=== PATIENT | female | born 1950 | race Caucasian/White ===

== ENCOUNTER 2016-12-07 16:02 | Observation (INO) | payer OTHER ==
[~2016-12-07] VITALS: Ht 157.5 cm; Wt 62.0 kg
[~2016-12-07 16:02] MED LIST: ALBUTEROL0.63 MG/3 NEB; AMBIEN5 MG PO; ANTIVERT25 MG PO; ASPIRIN325 MG PO; ATROVENT HFA12.9 GM INH; ATROVENT2.5 ML NEB; AUGMENTIN 500-1 EACH PO; DULCOLAX5 MG PO; DUONEB 2.5-0.5MG3 ML NEB; HYDROCODON-ACE1 EAC4 PO; HYDROCODON-ACE1 EAC6 PO; LEVAQUIN500 MG PO; MEDROL4 M1 PO; NASA MIST SALI177 ML; NICODERM 14MG PA1 EA TD; NICODERM 21MG PA1 EA TD; NICODERM 7MG PAT1 EA TD; PEPCID20 MG PO; PRAVACHOL40 MG PO; PREDNISONE5 MG PO; PROCARDIA XL90 MG PO; PROVENTIL INHAL17 GM INH; SPIRIVA18 MCG INH; SYMBICORT 16010.2 GM INH; VALIUM5 MG PO; ZANTAC300 MG PO
[2016-12-07 18:22] LABS: HEMATOCRIT 38.2 % (34-45); HEMOGLOBIN 12.5 g/dL (11.2-15.7); MEAN CORPUSCULAR HEMOGLOBIN 29.6 pg (27.0-33.0); MEAN CORPUSCULAR HGB CONC 32.7 g/dL (32.0-36.0); MEAN CORPUSCULAR VOLUME 90.3 fL (79-95); RED BLOOD COUNT 4.23 x10_6/uL (3.9-5.2); RED CELL DISTRIBUTION WIDTH 12.6 % (11.7-14.4); WHITE BLOOD COUNT 7.7 x10_3/uL (4.0-10.0)
[2016-12-07 18:32] LABS: BLOOD UREA NITROGEN 15 mg/dL (7-18); CARBON DIOXIDE 27 mmol/L (21-32); CREATININE 0.9 mg/dL (0.6-1.3); GLUCOSE,RANDOM 130 mg/dL (70-99); POTASSIUM 3.6 mmol/L (3.5-5.1); SODIUM 139 mmol/L (136-145)
[2016-12-09 06:53] LABS: HEMATOCRIT 37.1 % (34-45); HEMOGLOBIN 12.1 g/dL (11.2-15.7); MEAN CORPUSCULAR HEMOGLOBIN 29.2 pg (27.0-33.0); MEAN CORPUSCULAR HGB CONC 32.6 g/dL (32.0-36.0); MEAN CORPUSCULAR VOLUME 89.4 fL (79-95); MEAN PLATELET VOLUME 10.2 fl (7.5-11.5); RED BLOOD COUNT 4.15 x10_6/uL (3.9-5.2); RED CELL DISTRIBUTION WIDTH 12.3 % (11.7-14.4); WHITE BLOOD COUNT 14.4 x10_3/uL (4.0-10.0)
[2016-12-09 06:57] LABS: CALCIUM 9.2 mg/dL (8.7-10.7); CARBON DIOXIDE 25 mmol/L (21-32); CREATININE 0.9 mg/dL (0.6-1.3); GLUCOSE,RANDOM 213 mg/dL (70-99); POTASSIUM 4.1 mmol/L (3.5-5.1); SODIUM 138 mmol/L (136-145)
[2016-12-09 07:00] LABS: BLOOD UREA NITROGEN 24 mg/dL (7-18)
== END 2016-12-09 15:00 | disposition home or self-care (01) ==
LOC: MS 16:02
PROVIDERS: ADMIT Family Medicine
DX: J44.1 Chronic obstructive pulmonary disease with (acute) exacerbation (principal); F17.210 Nicotine dependence, cigarettes, uncomplicated; Z88.8 Allergy status to other drugs, medicaments and biological substances; Z88.7 Allergy status to serum and vaccine; Z79.899 Other long term (current) drug therapy; Z79.82 Long term (current) use of aspirin; Z90.49 Acquired absence of other specified parts of digestive tract
CPT/HCPCS: 36415; 71020; 80048; 80198; 83880; 86738; 87040; 87070; 87205; 87400; 87449; 94640; 96365; 96366; 96367; 96375; 96376; 99070; G0378; J2930